=== PATIENT | male | born 1975 | race Caucasian/White ===

== ENCOUNTER → 2019-04-21 | Outpatient (CLI) | payer BC ==
--- NOTE | 2019-04-21 22:56 | MR ---
EXAMINATION TYPE: MR lumbar spine wo con DATE OF EXAM: 04/21/2019 COMPARISON: NONE HISTORY: LBP, BLE radic x 9 mos, no trauma/surgery TECHNIQUE: Multiplanar, multisequence imaging of the lumbar spine is performed without IV contrast. FINDINGS: Sagittal images of the lumbar spine show vertebral body heights and alignment to appear sat isfactory. There is disc desiccation L5-S1 level otherwise vertebral body heights and hydration are f airly well maintained.. The conus medullaris is normal in position and signal ending mid L1 level. The bone marrow signal intensity is within normal limits. Axial images show the T12-L1, L1-L2, L2-L3, L3-L4 levels all to appear within normal limits. Axial images at the L4-L5 level show mild facet degenerative changes bilaterally with mild broad-base d posterior disc protrusion minimally effacing the anterior thecal sac. Bilateral neural foramina are patent. Axial images at the L5-S1 level show mild/moderate facet show changes bilaterally with central disc p rotrusion minimally effacing the anterior thecal sac. Bilateral neural foramina are patent. There is partial visualization of fluid prominent duodenum involving second and proximal third portio n which can be seen in setting of SMA syndrome, correlate clinically. IMPRESSION: Mild degenerative changes in the lower lumbar spine as detailed above. No suspicious larg e disc herniation seen to account for patient's bilateral radiculopathy type symptoms however.
== END | disposition home or self-care (01) ==
LOC: RADMRIMAIN 16:47
PROVIDERS: ATTEND Physician Assistant
DX: M47.816 Spondylosis without myelopathy or radiculopathy, lumbar region (principal)
CPT/HCPCS: 72148